=== PATIENT | female | born 1970 | race Caucasian/White ===

== ENCOUNTER 2017-07-18 08:30 | Outpatient (CLI) | payer BC | END 2017-07-18 08:31 | disposition home or self-care (01) | LOC: BICMAMMO 08:30 | PROVIDERS: ATTEND Family Medicine | DX: Z12.31 Encounter for screening mammogram for malignant neoplasm of breast (principal); Z80.3 Family history of malignant neoplasm of breast | CPT/HCPCS: 77063; 77067 ==

== ENCOUNTER 2018-07-15 09:32 | Inpatient (IN) | payer BC ==
[2018-07-15] MEDS ORDERED: Ondansetron PF 4 MG/2 ML Vial ONE ×2 (09:57→16:37)
[2018-07-15] MEDS ORDERED: Morphine 4 MG/ML VIAL ONE (09:57)
[2018-07-15 10:32] LABS: Band 4 % (5-11); Hemoglobin 15.5 g/dL (12.0-16.0); Lymphocytes 3 % (21-51); MDiff Complete? YES; Mean Corpuscular HGB CONC 34.7 g/dL (32.0-36.0); Mean Corpuscular Hemoglobin 28.7 pg (27.0-31.0); Mean Corpuscular Volume 82.8 fL (78.0-98.0); Mean Platelet Volume 8.5 fL (7.4-10.4); Monocytes 5 % (0-10); Neutrophil 86 % (42-75); Platelet Count 237 thou/uL (130-400); Platelet Morphology Comment Appears Adequate; RBC Distribution Width 11.7 % (11.5-14.5); Reactive Lymphocytes 2 % (0-10); Red Blood Cell (RBC) Count 5.38 mill/uL (4.20-5.40); Toxic Granulation SLIGHT; Vacuoles SLIGHT; White Blood Cell (WBC) Count 20.5 thou/uL (4.8-10.8)
[2018-07-15 10:38] LABS: ALT (SGPT) 26 U/L (8-55); AST (SGOT) 13 U/L (5-34); Albumin 4.4 g/dL (3.5-5.0); Alkaline Phosphatase 121 U/L (40-150); Anion Gap 16 mmol/L (10-20); BUN (Urea Nitrogen) 8 mg/dL (7.0-18.7); Bilirubin, Total 0.9 mg/dL (0.2-1.2); Calc. Creatinine Clearance 0 mL/min (70-130); Calcium 9.9 mg/dL (7.8-10.44); Carbon Dioxide 22 mmol/L (22-29); Chloride 100 mmol/L (98-107); Estimated GFR-MDRD 80; Globulin 3.6 g/dL (2.4-3.5); Glucose 265 mg/dL (70-105); Lipase 72 U/L (8-78); Potassium 3.8 mmol/L (3.5-5.1); Sodium 134 mmol/L (136-145)
[2018-07-15 11:34] LABS: Bilirubin Negative (Negative); Blood, Urine Trace (Negative); Clarity Clear (Clear); Glucose, Urine (Dipstick) >=1000 mg/dL (Negative); Leukocyte Negative (Negative); Nitrite Negative (Negative); Protein, Urine (Dipstick) Negative (Neg-Trace); Urobilinogen 0.2 mg/dL (0.2-1.0)
[2018-07-15 11:36] LABS: Bacteria/HPF 1+ HPF (None Seen); RBC/HPF 0-3 HPF (0-3); WBC/HPF 0-3 HPF (0-3); Yeast-All Forms 1+ HPF (None Seen)
[2018-07-15 11:37] LABS: Pregnancy Test - Urine (BHCG) Negative (Negative); Pregu Control Background? CLEAR/WHITE (CLR/WHITE); Pregu Control Bar Appear? YES (CONTROL BAR)
--- NOTE | 2018-07-15 12:40 | CT ---
CT abdomen and pelvis with IV contrast HISTORY: Abdominal pain. FINDINGS: Lung bases are clear. Postoperative changes at the GE junction. Gallbladder surgically abse nt. Marked inflammation within the fat of the right lower quadrant surrounding an appendix that is fluid-filled and dilated up to 1.3 cm. An oval 1.0 cm calculus is present at the base of the appendix . No free air or abscess evident. Degenerative changes lumbar spine. IMPRESSION: Obstructed and severely inflamed appendix. Acute appendicitis.
[2018-07-15] MEDS ORDERED: Piperacillin/Tazobactam 3.375 GM VIAL ONE (13:08)
[2018-07-15] MEDS ORDERED: Sodium Chloride 0.9% 100 ML ONE (13:09)
[2018-07-15] MEDS ORDERED: Ketorolac Tromethamine 30 MG/ML VIAL ONE (14:21)
[2018-07-15] MEDS ORDERED: Scopolamine 1.5 mg/72 hour Patch ONE (14:22)
--- NOTE | 2018-07-15 14:49 | HP ---
HISTORY OF PRESENT ILLNESS: Lavern Beach is a 47-year-old female with 2-day history of lower back pain, right lower quadrant pain, increased pain with movement. She has been lying in the position, suffered anorexia, nausea, and vomiting. She has not had any fever. She went for consultation in emergency room, evaluated, and noted to have a white count of 20,000, hemoglobin 15. Basic metabolic profile is normal. Glucose is 265. Hemoglobin A1c was 8.4. CAT scan revealed changes consistent with appendicitis. ALLERGIES: NONE. SOCIAL HISTORY: Tobacco, none. Alcohol, none. PAST SURGICAL HISTORY: Laparoscopic gastric bypass in [place] 20 years ago, 275 pounds prior, got down to 170 pounds, gain to over 200 pounds, but now is trying to lose weight and is now back down to 190 pounds. Hysterectomy in the past, oophorectomy with Dr. Drake, laparoscopic cholecystectomy that I performed in 1993. PAST MEDICAL HISTORY: Diabetes and hypertension. REVIEW OF SYSTEMS: Noncontributory. PHYSICAL EXAMINATION: HEAD EARS, EYES, NOSE AND THROAT: Unremarkable. LUNGS: Clear to auscultation. CARDIAC: Regular rate and rhythm without murmur or gallop. ABDOMEN: Soft. Tenderness in right lower quadrant, guarding, rebound. EXTREMITIES: Unremarkable. LABORATORY DATA: As mentioned above. She received Zosyn. We will give her Toradol, Ofirmev. Questions answered. PLAN: Laparoscopic cholecystectomy outpatient [facility]. Job ID: [id number]
[2018-07-15] MEDS ORDERED: Fentanyl 100 MCG/2 ML VIAL ONE ×2 (15:01→17:30)
[2018-07-15] MEDS ORDERED: Midazolam HCl 2 mg/2 ml Vial ONE (15:01)
[2018-07-15] MEDS ORDERED: Bupivacaine HCl 0.5%/Epinephrine 1:200,000/PF 30 ml Vial ONE (15:02)
[2018-07-15] MEDS ORDERED: Iopamidol 370 76% 100 ML VIAL ONE (16:05)
[2018-07-15] MEDS ORDERED: Lidocaine 1% PF 5 ML VIAL ONE (16:37)
[2018-07-15] MEDS ORDERED: Rocuronium Bromide 10 MG/ML (10ML VIAL) ONE (16:37)
[2018-07-15] MEDS ORDERED: Succinylcholine Chloride 20 MG/ML 10 ml SYRINGE FS ONE (16:37)
[2018-07-15] MEDS ORDERED: Dexamethasone 20 MG/5 ML VIAL ONE (16:37)
[2018-07-15] MEDS ORDERED: PROPOFOL 200 MG/20 ML VIAL ONE (16:37)
[2018-07-15] MEDS ORDERED: Glycopyrrolate 0.2 MG/ML 5 ML SYRINGE ONE (16:37)
[2018-07-15] MEDS ORDERED: hydrALAZINE 20 MG/ML VIAL SLOW IVP PRN (16:51)
[2018-07-15] MEDS ORDERED: Morphine 4 MG/ML VIAL SLOW IVP PRN (16:51)
[2018-07-15] MEDS ORDERED: Dextrose 50% Abboject 50 ML SYRINGE SLOW IVP PRN (16:51)
[2018-07-15] MEDS ORDERED: Ondansetron PF 4 MG/2 ML Vial IVP PRN (16:51)
[2018-07-15] MEDS ORDERED: Ondansetron ODT 4 MG TAB PO PRN (16:51)
[2018-07-15] MEDS ORDERED: Dextrose 5% in Water 1,000 ML IV PRN (16:51)
[2018-07-15] MEDS ORDERED: Morphine 2 MG/ML SYRINGE SLOW IVP PRN (16:51)
[2018-07-15] MEDS ORDERED: traMADol HCl 50 MG TAB PO PRN (16:54)
[2018-07-15] MEDS ORDERED: Acetaminophen 500 MG TAB PO PRN (16:54)
[2018-07-15] MEDS ORDERED: Ondansetron HCl/PF 4 MG/2 ML Vial IVP PRN (17:02)
[2018-07-15] MEDS ORDERED: HYDROmorphone 2 MG/ML VIAL SLOW IVP PRN (17:02)
[2018-07-15] MEDS ORDERED: Promethazine HCl 25 MG/ML VIAL IM PRN (17:02)
[2018-07-15] MEDS ORDERED: Promethazine HCl 25 MG/ML VIAL SLOW IVP PRN (17:02)
[2018-07-15] MEDS ORDERED: PACU-Morphine 4MG/ML VIAL SLOW IVP PRN (17:02)
[2018-07-15 18:01] VITALS: BMI 31.6
--- NOTE | 2018-07-15 18:09 | OP ---
DATE OF PROCEDURE: 07/15/2018 PREOPERATIVE DIAGNOSIS: Acute appendicitis. POSTOPERATIVE DIAGNOSIS: Acute gangrenous appendicitis with early abscess. PROCEDURE PERFORMED: Laparoscopic video appendectomy, #19 gold IRVIN drain. Appendix was removed in an EndoBag. ANESTHESIA: General anesthesia, local 0.5% Marcaine with epinephrine 30 mL. DESCRIPTION OF PROCEDURE: The patient was taken to the operating room where under general anesthesia, Sosa catheter was placed at the beginning of the procedure and removed at the end. Abdomen was clipped of hair, prepared with ChloraPrep and draped in routine fashion. Local anesthetic was infiltrated in the skin and subcutaneous tissue at each port site. Right lateral subcostal incision was made, and the pneumoperitoneum to 15 mmHg obtained with a Veress needle, replaced with a 5 port, laparoscope inserted. There were adhesions around the umbilicus, but managed to make an incision through an old scar and placed a 5 port under laparoscopic visualization, periumbilical. LigaSure was used to take down omental adhesions in the right lower quadrant. Suprapubic incision was made and the 12 port placed. Appendix was identified in the right pelvis and had inflammatory adhesions, mobilized bluntly, identifying the appendix, which was acutely inflamed and gangrenous with early abscess. As I mobilized it, there was purulent material that was evacuated. Dissection was carried down to the stump of the appendix, which was divided with the Endo-ZEKE blue load stapler. Stapled cecal stump was hemostatic and secured. Hemostasis was gained with the LigaSure. Appendix was placed in the Endobag and removed. Area irrigated with abundant saline solution, irrigant evacuated. Good hemostasis ensured. A 19 gold IRVIN drain placed through the right lateral subcostal port site and secured with 3-0 nylon suture. Laparoscopically placed the drain in good position. Irrigant and pneumoperitoneum evacuated. All instruments removed, and suprapubic fascia was approximated with 0 Vicryl and skin with interrupted subdermal 4-0 Monocryl and [place] glue applied. Job ID: [id number]
[2018-07-15] MEDS: Sodium Chloride 0.9% 1,000 ML IV SCH (18:13)
[2018-07-15] MEDS: Piperacillin/Tazobactam 4.5 GM in Sodium Chloride 0.9% 100 ML IVPB SCH ×2 (18:25→23:30)
[2018-07-15] MEDS: HumaLOG 300 UNITS/3 ML VIAL SC PRN ×2 (18:45→22:40)
[2018-07-15] MEDS: Famotidine 20 MG TAB PO SCH (20:33)
[2018-07-15] MEDS: Ketorolac Tromethamine 30 MG/ML VIAL IVP PRN (20:33)
[2018-07-15] MEDS: Enoxaparin Sodium 40 MG/0.4 ML SYRINGE SC SCH (20:33)
[2018-07-15] MEDS: Zolpidem Tartrate 5 MG TAB PO SCH (22:46)
[2018-07-16] MEDS: Sodium Chloride 0.9% 1,000 ML IV SCH ×3 (01:48→19:55)
[2018-07-16 05:05] LABS: #Lymphocytes 1.6 thou/uL (1.20-3.40); #Monocytes 1.1 thou/uL (0.11-0.59); #Neutrophils 17.4 thou/uL (1.40-6.50); %Basophils 0.2 % (0.0-1.0); %Eosinophils 0.1 % (0.0-10.0); %Lymphocytes 7.8 % (21.0-51.0); %Monocytes 5.5 % (0.0-10.0); %Neutrophils 86.4 % (42.0-75.0); Hemoglobin 12.8 g/dL (12.0-16.0); Mean Corpuscular HGB CONC 33.3 g/dL (32.0-36.0); Mean Corpuscular Hemoglobin 29.1 pg (27.0-31.0); Mean Corpuscular Volume 87.4 fL (78.0-98.0); Mean Platelet Volume 8.3 fL (7.4-10.4); Platelet Count 210 thou/uL (130-400); RBC Distribution Width 11.7 % (11.5-14.5); Red Blood Cell (RBC) Count 4.39 mill/uL (4.20-5.40); White Blood Cell (WBC) Count 20.1 thou/uL (4.8-10.8)
[2018-07-16 05:18] LABS: ALT (SGPT) 20 U/L (8-55); AST (SGOT) 13 U/L (5-34); Albumin 3.4 g/dL (3.5-5.0); Alkaline Phosphatase 91 U/L (40-150); Anion Gap 15 mmol/L (10-20); BUN (Urea Nitrogen) 11 mg/dL (7.0-18.7); Bilirubin, Total 0.7 mg/dL (0.2-1.2); Calc. Creatinine Clearance 140 mL/min (70-130); Calcium 8.7 mg/dL (7.8-10.44); Carbon Dioxide 20 mmol/L (22-29); Chloride 105 mmol/L (98-107); Estimated GFR-MDRD Greater than 90; Glucose 167 mg/dL (70-105); Potassium 4.1 mmol/L (3.5-5.1); Protein, Total 6.4 g/dL (6.0-8.3); Sodium 136 mmol/L (136-145)
[2018-07-16] MEDS: Piperacillin/Tazobactam 4.5 GM in Sodium Chloride 0.9% 100 ML IVPB SCH ×4 (06:13→23:03)
[2018-07-16] MEDS: HumaLOG 300 UNITS/3 ML VIAL SC PRN ×2 (06:17→21:39)
[2018-07-16] MEDS ORDERED: INVOKANA 100 MG PO SCH (07:30)
[2018-07-16] MEDS: metFORMIN 500 MG TAB PO SCH ×2 (08:58→17:11)
[2018-07-16] MEDS: Pioglitazone HCl 15 MG TAB PO SCH (08:59)
[2018-07-16] MEDS: Famotidine 20 MG TAB PO SCH ×2 (08:59→21:34)
[2018-07-16] MEDS: Ketorolac Tromethamine 30 MG/ML VIAL IVP PRN ×2 (09:03→17:17)
[2018-07-16] MEDS: Enoxaparin Sodium 40 MG/0.4 ML SYRINGE SC SCH (21:33)
--- NOTE | 2018-07-16 22:40 | PRG ---
DATE OF SERVICE: 07/16/2018 SUBJECTIVE: Lavern Beach is doing well after laparoscopic appendectomy for periappendiceal abscess with gangrenous appendix. She has remained afebrile. Her drain output is not recorded. It is serosanguineous. OBJECTIVE: LUNGS: Clear to auscultation. CARDIAC: Regular rate and rhythm without murmur or gallop. ABDOMEN: Soft, nontender. She is tolerating her diet. LABORATORY DATA: This morning, her white count is 20,000. ASSESSMENT AND PLAN: We will continue intravenous antibiotics today and anticipate discharge home tomorrow after removal of her drain. We will send her home with Augmentin. Job ID: [id number]
[2018-07-16] MEDS: traMADol HCl 50 MG TAB PO PRN (23:03)
[2018-07-16] MEDS: Zolpidem Tartrate 5 MG TAB PO SCH (23:04)
[2018-07-17] MEDS: Sodium Chloride 0.9% 1,000 ML IV SCH ×3 (03:30→12:16)
[2018-07-17 05:32] LABS: #Eosinphils 0.1 thou/uL (0.0-0.7); #Lymphocytes 2.5 thou/uL (1.20-3.40); #Monocytes 0.8 thou/uL (0.11-0.59); #Neutrophils 11.4 thou/uL (1.40-6.50); %Basophils 0.3 % (0.0-1.0); %Eosinophils 0.6 % (0.0-10.0); %Lymphocytes 16.7 % (21.0-51.0); %Monocytes 5.5 % (0.0-10.0); %Neutrophils 76.8 % (42.0-75.0); Hemoglobin 11.1 g/dL (12.0-16.0); Mean Corpuscular HGB CONC 32.9 g/dL (32.0-36.0); Mean Corpuscular Hemoglobin 28.9 pg (27.0-31.0); Mean Corpuscular Volume 87.8 fL (78.0-98.0); Mean Platelet Volume 8.6 fL (7.4-10.4); Platelet Count 214 thou/uL (130-400); RBC Distribution Width 11.8 % (11.5-14.5); Red Blood Cell (RBC) Count 3.84 mill/uL (4.20-5.40); White Blood Cell (WBC) Count 14.8 thou/uL (4.8-10.8)
[2018-07-17] MEDS: Piperacillin/Tazobactam 4.5 GM in Sodium Chloride 0.9% 100 ML IVPB SCH ×2 (05:40→12:12)
[2018-07-17] MEDS: HumaLOG 300 UNITS/3 ML VIAL SC PRN ×2 (06:04→12:10)
[2018-07-17] MEDS: metFORMIN 500 MG TAB PO SCH ×2 (09:01→19:06)
[2018-07-17] MEDS: Pioglitazone HCl 15 MG TAB PO SCH (09:02)
[2018-07-17] MEDS: Famotidine 20 MG TAB PO SCH (09:02)
[2018-07-17] MEDS: traMADol HCl 50 MG TAB PO PRN ×2 (09:18→19:04)
[2018-07-17 15:20] VITALS: BP 108/71; TEMP 98.4
[2018-07-17] MEDS ORDERED: Amoxicillin/Potassium Clav 500 MG TAB PO SCH (21:00)
--- NOTE | 2018-07-18 04:06 | DIS ---
DATE OF ADMISSION: 07/15/2018 DATE OF DISCHARGE: 07/17/2018 DISCHARGE DIAGNOSIS: Acute gangrenous appendicitis with small abscess. POSTOPERATIVE DIAGNOSIS: Acute gangrenous appendicitis with small abscess. HISTORY: The patient presented with a history and exam consistent with appendicitis and symptoms ongoing for more than 36 hours. She underwent laparoscopic video appendectomy. Findings at operation included a gangrenous appendix with purulence. With these findings, she was kept on intravenous antibiotics and a drain placed to serosanguineous. Her white count fell from 20,000 to 14,000. She has tolerating her diet, not having a fever. She is discharged home at this time with Tylenol [id number] for pain or Motrin [id number] for pain; Ultram p.r.n. pain, #20, with 2 refills; Augmentin for 5 days. Diet and activity as tolerated. Off work note for a week. Job ID: [id number]
== END 2018-07-17 19:09 | disposition home or self-care (01) | DRG 343 ==
LOC: SCSER 09:32 → ERS 13:04 → SURG A 13:48
PROVIDERS: ADMIT Specialist; ATTEND Specialist
PROC: 0DTJ4ZZ Resection of Appendix, Percutaneous Endoscopic Approach (ICD-10-PCS; principal; 2018-07-15)
DX: K35.891 Other acute appendicitis without perforation, with gangrene (principal); E11.9 Type 2 diabetes mellitus without complications; I10 Essential (primary) hypertension; Z90.710 Acquired absence of both cervix and uterus; Z98.84 Bariatric surgery status; Z90.49 Acquired absence of other specified parts of digestive tract; Z79.84 Long term (current) use of oral hypoglycemic drugs; Z79.899 Other long term (current) drug therapy
CPT/HCPCS: 36415; 36416; 74177; 80053; 81003; 81015; 81025; 83690; 85025; 88304; 96361; 96365; 96375; J0131; J0670; J1100; J1650; J1885; J2001; J2250; J2270; J2405; J2543; J2704; J3010; J3411; J3490; J7050; Q9967

== ENCOUNTER 2020-05-19 19:50 | Inpatient (IN) | payer BC ==
[2020-05-19] MEDS ORDERED: Dexamethasone 10 MG/ML VIAL ONE (20:29)
[2020-05-19] MEDS ORDERED: Albuterol 200 PUFF (6.7GM INHALER) ONE ×2 (20:30→20:48)
[2020-05-19 20:31] LABS: #Eosinphils 0.1 thou/uL (0.0-0.7); #Lymphocytes 2.1 thou/uL (1.20-3.40); #Monocytes 0.9 thou/uL (0.11-0.59); #Neutrophils 5.6 thou/uL (1.40-6.50); %Basophils 0.4 % (0.0-1.0); %Eosinophils 1.1 % (0.0-10.0); %Lymphocytes 24.3 % (21.0-51.0); %Monocytes 10.5 % (0.0-10.0); %Neutrophils 63.6 % (42.0-75.0); Hemoglobin 14.3 g/dL (12.0-16.0); Mean Corpuscular HGB CONC 33.7 g/dL (32.0-36.0); Mean Corpuscular Hemoglobin 28.4 pg (27.0-31.0); Mean Corpuscular Volume 84.2 fL (78.0-98.0); Mean Platelet Volume 8.6 fL (7.4-10.4); Platelet Count 388 thou/uL (130-400); RBC Distribution Width 11.2 % (11.5-14.5); Red Blood Cell (RBC) Count 5.04 mill/uL (4.20-5.40); White Blood Cell (WBC) Count 8.8 thou/uL (4.8-10.8)
[2020-05-19 20:59] LABS: ALT (SGPT) 34 U/L (8-55); AST (SGOT) 34 U/L (5-34); Albumin 3.2 g/dL (3.5-5.0); Alkaline Phosphatase 104 U/L (40-110); Anion Gap 19 mmol/L (10-20); BUN (Urea Nitrogen) 10 mg/dL (7.0-18.7); Calc. Creatinine Clearance 0 mL/min (70-130); Calcium 8.3 mg/dL (7.8-10.44); Carbon Dioxide 24 mmol/L (22-29); Chloride 95 mmol/L (98-107); Globulin 3.9 g/dL (2.4-3.5); Glucose 234 mg/dL (70-105); Potassium 3.8 mmol/L (3.5-5.1); Protein, Total 7.1 g/dL (6.0-8.3); Sodium 134 mmol/L (136-145)
[2020-05-19 21:04] LABS: Actual Bicarbonate (HCO3a) 23.7 mEq/L (22-28); Analyzer IN Cardio ER; Base Excess (BEa) 1.7 mEq/L (-2.0 to +3.0); CO2 Tension 29.9 mmHg (35.0-45.0); Calcium, Ionized (arterial) 1.12 mmol/L (1.12-1.30); Carboxyhemoglobin (COHb) 0.8 gm% (0.0-3.0); Hemoglobin (Hb) 14.2 g/dL (12.0-16.0); O2 Tension (PaO2), arterial 65.9 mmHg (80.0-100.0); Potassium - ABG Lab 3.62 mmol/L (3.70-5.30); pH, Arterial 7.52 (7.35-7.45)
[2020-05-19 21:05] LABS: Puncture Site LRA
[2020-05-19 21:06] LABS: ALV-art Gradient 96.365 mmHg (0-20)
[2020-05-19] MEDS ORDERED: Ketorolac Tromethamine 30 MG/ML VIAL ONE (22:40)
[2020-05-20] MEDS ORDERED: Acetaminophen 325 MG TAB PO PRN (01:06)
[2020-05-20] MEDS ORDERED: Acetaminophen/Codeine 30-300mg Tablet PO PRN (01:16)
[2020-05-20] MEDS ORDERED: HYDROcodone/Acetaminophen 5/325 mg Tablet PO PRN (01:16)
[2020-05-20] MEDS ORDERED: HumaLOG 300 UNITS/3 ML VIAL SC PRN (01:18)
[2020-05-20] MEDS ORDERED: Dextrose 5% in Water 1,000 ML IV PRN (01:18)
[2020-05-20] MEDS ORDERED: Dextrose 50% Abboject 50 ML SYRINGE SLOW IVP PRN (01:18)
[2020-05-20 02:23] VITALS: BMI 28.2
[2020-05-20 02:57] LABS: #Basophils 0.1 thou/uL (0.0-0.2); #Lymphocytes 0.7 thou/uL (1.20-3.40); #Monocytes 0.4 thou/uL (0.11-0.59); #Neutrophils 6.8 thou/uL (1.40-6.50); %Basophils 1.5 % (0.0-1.0); %Eosinophils 0.2 % (0.0-10.0); %Lymphocytes 8.7 % (21.0-51.0); %Monocytes 4.6 % (0.0-10.0); Hemoglobin 14.2 g/dL (12.0-16.0); Mean Corpuscular HGB CONC 34.2 g/dL (32.0-36.0); Mean Corpuscular Volume 84.7 fL (78.0-98.0); Mean Platelet Volume 8.5 fL (7.4-10.4); Platelet Count 381 thou/uL (130-400); RBC Distribution Width 11.2 % (11.5-14.5); Red Blood Cell (RBC) Count 4.88 mill/uL (4.20-5.40)
[2020-05-20 03:16] LABS: Anion Gap 21 mmol/L (10-20); BUN (Urea Nitrogen) 13 mg/dL (7.0-18.7); Calc. Creatinine Clearance 115 mL/min (70-130); Calcium 8.5 mg/dL (7.8-10.44); Carbon Dioxide 21 mmol/L (22-29); Chloride 94 mmol/L (98-107); Glucose 382 mg/dL (70-105); Potassium 4.6 mmol/L (3.5-5.1); Sodium 131 mmol/L (136-145)
[2020-05-20] MEDS: HumaLOG 300 UNITS/3 ML VIAL SC PRN ×4 (06:07→21:10)
[2020-05-20] MEDS: Ascorbic Acid 500 mg Chewable Tablet PO SCH (08:42)
[2020-05-20] MEDS: Cholecalciferol (Vitamin D3) 400 UNITS TAB PO SCH (08:42)
[2020-05-20] MEDS: Pantoprazole 40 MG VIAL IVP SCH (08:43)
[2020-05-20] MEDS: Dexamethasone 4 mg/ml Vial SLOW IVP SCH (08:44)
[2020-05-20] MEDS ORDERED: Enoxaparin Sodium 40 MG/0.4 ML SYRINGE SC SCH (09:00)
[2020-05-20] MEDS ORDERED: Iopamidol-370 76% 500 ML 1 ML ONE (14:38)
[2020-05-20] MEDS: metFORMIN 500 MG TAB PO SCH (17:57)
[2020-05-20] MEDS: Mometasone 200 MCG/Formoterol 5 MCG 120 PUFF INHALER INH SCH (18:02)
[2020-05-20] MEDS ORDERED: Zolpidem Tartrate 5 MG TAB PO SCH (21:00)
[2020-05-21] MEDS: Mometasone 200 MCG/Formoterol 5 MCG 120 PUFF INHALER INH SCH ×2 (06:14→18:16)
[2020-05-21] MEDS: HumaLOG 300 UNITS/3 ML VIAL SC PRN ×4 (06:14→22:06)
[2020-05-21] MEDS: Ascorbic Acid 500 mg Chewable Tablet PO SCH (08:47)
[2020-05-21] MEDS: Cholecalciferol (Vitamin D3) 400 UNITS TAB PO SCH (08:48)
[2020-05-21] MEDS: metFORMIN 500 MG TAB PO SCH ×2 (08:48→17:23)
[2020-05-21] MEDS: Aspirin 81 mg Enteric Coated Tablet PO SCH (08:48)
[2020-05-21] MEDS: Pantoprazole 40 MG VIAL IVP SCH (08:48)
[2020-05-21] MEDS: Enoxaparin Sodium 40 MG/0.4 ML SYRINGE SC SCH (08:48)
[2020-05-21] MEDS: Dexamethasone 4 mg/ml Vial SLOW IVP SCH (08:48)
[2020-05-21] MEDS ORDERED: Non-Formulary Item 1 EACH (Dextroamphetamine/Amphetamine [Adderall Xr 30 Mg Capsule] 30 M PO SCH (09:00)
[2020-05-21] MEDS ORDERED: HumaLOG 300 UNITS/3 ML VIAL SC PRN (22:11)
[2020-05-21] MEDS ORDERED: Zolpidem Tartrate 5 MG TAB PO SCH (22:15)
[2020-05-21] MEDS ORDERED: Fentanyl 100 MCG/2 ML VIAL ONE (22:36)
[2020-05-22] MEDS: Mometasone 200 MCG/Formoterol 5 MCG 120 PUFF INHALER INH SCH (07:17)
[2020-05-22] MEDS: HumaLOG 300 UNITS/3 ML VIAL SC PRN ×2 (07:26→10:57)
[2020-05-22] MEDS: Dexamethasone 4 mg/ml Vial SLOW IVP SCH (08:43)
[2020-05-22] MEDS: metFORMIN 500 MG TAB PO SCH (08:43)
[2020-05-22] MEDS: Aspirin 81 mg Enteric Coated Tablet PO SCH (08:43)
[2020-05-22] MEDS: Cholecalciferol (Vitamin D3) 400 UNITS TAB PO SCH (08:43)
[2020-05-22] MEDS: Ascorbic Acid 500 mg Chewable Tablet PO SCH (08:43)
[2020-05-22] MEDS: Enoxaparin Sodium 40 MG/0.4 ML SYRINGE SC SCH (08:44)
[2020-05-22] MEDS: Pantoprazole 40 MG VIAL IVP SCH (08:44)
[2020-05-22 16:21] VITALS: BP 101/61; TEMP 97.9
[2020-05-22] MEDS ORDERED: Zolpidem Tartrate 5 MG TAB PO SCH (21:00)
== END 2020-05-22 18:05 | disposition home or self-care (01) | DRG 177 ==
LOC: ERS 19:50 → 2SW 05-20 00:21 → OBSVTOIN 05-20 00:21
PROVIDERS: ADMIT Student in an Organized Health Care Education/Training Program; ATTEND Internal Medicine
DX: U07.1 COVID-19 (principal); J96.01 Acute respiratory failure with hypoxia; J12.82 Pneumonia due to coronavirus disease 2019; R04.2 Hemoptysis; E87.1 Hypo-osmolality and hyponatremia; E11.9 Type 2 diabetes mellitus without complications; R04.0 Epistaxis; Z90.710 Acquired absence of both cervix and uterus; Z98.84 Bariatric surgery status; Z90.49 Acquired absence of other specified parts of digestive tract; Z79.899 Other long term (current) drug therapy; Z79.51 Long term (current) use of inhaled steroids; Z79.84 Long term (current) use of oral hypoglycemic drugs
CPT/HCPCS: 36415; 36416; 36600; 71045; 71275; 80048; 80053; 82728; 82805; 84484; 85025; 85379; 86140; 93005; 94664; 96374; 96375; C9113; G0378; J1100; J1650; J1815; J1885; J3010; Q9967

== ENCOUNTER 2020-07-10 13:21 | Outpatient (CLI) | payer BC | END 2020-07-10 13:22 | disposition home or self-care (01) | LOC: BICMAMMO 13:21 | PROVIDERS: ATTEND Family Medicine | DX: Z12.31 Encounter for screening mammogram for malignant neoplasm of breast (principal); Z80.3 Family history of malignant neoplasm of breast | CPT/HCPCS: 77063; 77067 ==

== ENCOUNTER 2021-07-16 11:19 | Outpatient (CLI) | payer BC | END 2021-07-16 11:20 | disposition home or self-care (01) | LOC: BICMAMMO 11:19 | PROVIDERS: ATTEND Family Medicine | DX: Z12.31 Encounter for screening mammogram for malignant neoplasm of breast (principal); Z80.3 Family history of malignant neoplasm of breast | CPT/HCPCS: 77063; 77067 ==